=== PATIENT | female | born 1945 | race Caucasian/White ===

== ENCOUNTER 2021-05-18 10:27 | Inpatient (IN) | payer MEDICARE, OTHER ==
[~2021-05-18] VITALS: Ht 165.1 cm; Wt 56.1 kg
[~2021-05-18 10:27] MED LIST: ALLEGRA ALLERG180 MG PO; ESZO1 PO; NAPR500 PO; Norco 5-325 Ta1 EACH PO; OMEP20ER PO; OXYACE5T PO; PARO20 PO; PROM25 PO; PROM25S PR; ROSU5 PO; RXOXYACE PO; TRAM50 PO
[2021-05-18 11:02] LABS: BASOPHILS ABSOLUTE AUTO 0.03 K/mm3 (0.00-0.23); BASOPHILS PERCENT AUTO 0 % (0-2); EOSINOPHILS ABSOLUTE AUTO 0.01 K/mm3 (0.00-0.68); EOSINOPHILS PERCENT AUTO 0 % (0-6); Hematocrit 38.9 % (33.0-51.0); Hemoglobin 13.5 g/dL (11.5-16.0); IMMATURE GRAN ABSOLUTE AUTO 0.05 K/mm3 (0.00-0.10); IMMATURE GRAN PERCENT AUTO 0 % (0-1); LYMPHOCYTES PERCENT AUTO 9 % (21-46); MONOCYTES ABSOLUTE AUTO 0.55 K/mm3 (0.16-1.47); MONOCYTES PERCENT AUTO 4 % (4-13); Mean Corpuscular HGB Conc 34.7 g/dL (31.5-36.5); Mean Corpuscular Volume 86 fL (80-100); NEUTROPHILS PERCENT AUTO 86 % (41-73); Platelet Count 360 K/mm3 (150-400); RDW Coefficient Variation 13.1 % (11.7-14.2); RDW Standard Deviation 41.3 fL (35.1-46.3); White Blood Cell Count 13.54 K/mm3 (4.00-11.30)
[2021-05-18 11:36] LABS: Alanine Aminotransfer (ALT/SGP 25 U/L (12-78); Albumin, Blood 3.4 g/dL (3.4-5.0); Alk Phos 87 U/L (50-136); Anion Gap 8 mmol/L (6-16); Aspartate Aminotrans (AST/SGOT 134 U/L (12-37); Bilirubin, Total 0.4 mg/dL (0.1-1.0); Blood Urea Nitrogen 12 mg/dL (8-24); Bun/Creatinine Ratio 15.2 (12.0-20.0); CO2, Blood 26 mmol/L (21-32); Calcium, Blood 9.2 mg/dL (8.5-10.1); Chloride, Blood 104 mmol/L (98-108); Creatinine, Blood 0.79 mg/dL (0.40-1.00); Globulin, Blood 3.5 g/dL (2.2-4.0); Glomerular Filtration Rate >60 (60-); Glucose, Blood 141 mg/dL (70-99); Sodium, Blood 138 mmol/L (136-145); Total Protein, Blood 6.9 g/dL (6.4-8.2)
[2021-05-18] MEDS ORDERED: PAXIL PO (12:36)
[2021-05-18] MEDS ORDERED: Ventolin/Prove6.7 GM INH (12:36)
[2021-05-18] MEDS ORDERED: LOSARTAN POTASS25 M2 PO (12:37)
[2021-05-18 13:47] LABS: International Normalized Ratio 0.95
--- NOTE | 2021-05-18 22:08 | NUR ---
nurse note HEPARIN PLACED ON HOLD AT 2136 PER PHARMACY. WILL RESTART IN 1 HOUR.
[2021-05-19 04:50] LABS: BASOPHILS ABSOLUTE AUTO 0.01 K/mm3 (0.00-0.23); BASOPHILS PERCENT AUTO 0 % (0-2); EOSINOPHILS PERCENT AUTO 0 % (0-6); Hematocrit 39.6 % (33.0-51.0); Hemoglobin 13.5 g/dL (11.5-16.0); IMMATURE GRAN ABSOLUTE AUTO 0.07 K/mm3 (0.00-0.10); IMMATURE GRAN PERCENT AUTO 1 % (0-1); LYMPHOCYTES ABSOLUTE AUTO 1.24 K/mm3 (0.84-5.20); LYMPHOCYTES PERCENT AUTO 8 % (21-46); MONOCYTES ABSOLUTE AUTO 1.09 K/mm3 (0.16-1.47); MONOCYTES PERCENT AUTO 7 % (4-13); Mean Corpuscular HGB 29.9 pg (26.0-34.0); Mean Corpuscular HGB Conc 34.1 g/dL (31.5-36.5); Mean Corpuscular Volume 88 fL (80-100); Mean Platelet Volume 9.2 fL (9.1-12.4); NEUTROPHILS ABSOLUTE AUTO 12.42 K/mm3 (1.96-9.15); NEUTROPHILS PERCENT AUTO 84 % (41-73); Platelet Count 349 K/mm3 (150-400); RDW Coefficient Variation 13.2 % (11.7-14.2); RDW Standard Deviation 42.2 fL (35.1-46.3); Red Blood Cell Count 4.52 M/mm3 (3.80-5.20); White Blood Cell Count 14.83 K/mm3 (4.00-11.30)
[2021-05-19 05:26] LABS: Albumin, Blood 3.5 g/dL (3.4-5.0); Bilirubin, Total 0.6 mg/dL (0.1-1.0); Bun/Creatinine Ratio 17.1 (12.0-20.0); Calcium, Blood 9.3 mg/dL (8.5-10.1); Creatinine, Blood 0.94 mg/dL (0.40-1.00); Globulin, Blood 3.4 g/dL (2.2-4.0); Potassium, Blood 4.3 mmol/L (3.5-5.5); Total Protein, Blood 6.9 g/dL (6.4-8.2)
[2021-05-19 05:44] LABS: Troponin I 85.4 ng/mL (0.000-0.040)
--- NOTE | 2021-05-19 05:54 | NUR ---
SHIFT SUMMARY PT ADMITTED FOR NSTEMI. AAOX3. TROPONIN TRENDING UP DURING SHIFT. MD NOTIFIED, NO NEW ORDERS. NO CHANGES IN PT CONDITION DURING SHIFT. NO DISTRESS NOTED. VS STABLE. BED IN LOWEST POSITION, CALL LIGHT WITHIN REACH. PT ABLE TO MAKE NEEDS KNOWN.
[2021-05-19 06:18] LABS: CHOL/HDL RATIO 3.6; Cholesterol 269 mg/dL (50-200); HDL Cholesterol 74 mg/dL (>39); LDL/HDL RATIO 2.4; Low Density Lipoprotein Chol 177 mg/dL (0-110); Triglycerides 92 mg/dL (30-160); Very Low Density Lipoprot Chol 18 mg/dL (6-32)
--- NOTE | 2021-05-19 09:13 | NUR ---
ADMIT: 05/18/21 DISCHARGE: DX: Acute Respiratory failure w/hypoxia CC: shyam GUADARRAMA CALL: RESIDENCE: [id number] [place] [address] EMERGENCY CONTACT: Camilo Cartwright, Spouse / Partner, John Burns, Child, DX: arteriosclerotic, HTN, COPD, GERD, prediabetes, see list DME: none CCM: none HOME HEALTH: none SUMMARY: (Admit: 05/18/21) 05/19/21- per chart review with Dr. Wooten, pt is going to have a heart cath procedure this morning. -mitchb
[2021-05-19 09:21] LABS: PCO2 Arterial 36.7 mmHg (35-45); PO2 Arterial 54.1 mmHg (80-100); pH Blood Arterial 7.47 (7.35-7.45)
--- NOTE | 2021-05-19 10:06 | NUR ---
Patient taken to labeling strategist early this am and report given to Josephine in the PCU.
[2021-05-19 10:57] LABS: BASOPHILS ABSOLUTE AUTO 0.02 K/mm3 (0.00-0.23); BASOPHILS PERCENT AUTO 0 % (0-2); EOSINOPHILS PERCENT AUTO 0 % (0-6); Hematocrit 36.7 % (33.0-51.0); Hemoglobin 12.5 g/dL (11.5-16.0); IMMATURE GRAN ABSOLUTE AUTO 0.09 K/mm3 (0.00-0.10); IMMATURE GRAN PERCENT AUTO 1 % (0-1); LYMPHOCYTES ABSOLUTE AUTO 1.45 K/mm3 (0.84-5.20); LYMPHOCYTES PERCENT AUTO 8 % (21-46); MONOCYTES ABSOLUTE AUTO 1.23 K/mm3 (0.16-1.47); MONOCYTES PERCENT AUTO 7 % (4-13); Mean Corpuscular HGB Conc 34.1 g/dL (31.5-36.5); Mean Corpuscular Volume 88 fL (80-100); Mean Platelet Volume 9.3 fL (9.1-12.4); NEUTROPHILS ABSOLUTE AUTO 15.53 K/mm3 (1.96-9.15); NEUTROPHILS PERCENT AUTO 85 % (41-73); Platelet Count 323 K/mm3 (150-400); RDW Coefficient Variation 13.2 % (11.7-14.2); RDW Standard Deviation 42.5 fL (35.1-46.3); Red Blood Cell Count 4.16 M/mm3 (3.80-5.20); White Blood Cell Count 18.32 K/mm3 (4.00-11.30)
[2021-05-19 11:17] LABS: International Normalized Ratio 0.96; Prothrombin Time Results 10.1 Sec (9.7-11.5)
[2021-05-19 11:28] LABS: Anion Gap 7 mmol/L (6-16); Blood Urea Nitrogen 19 mg/dL (8-24); Bun/Creatinine Ratio 21.4 (12.0-20.0); CO2, Blood 29 mmol/L (21-32); Calcium, Blood 9.2 mg/dL (8.5-10.1); Chloride, Blood 104 mmol/L (98-108); Creatinine, Blood 0.89 mg/dL (0.40-1.00); Glomerular Filtration Rate >60 (60-); Glucose, Blood 112 mg/dL (70-99); Sodium, Blood 140 mmol/L (136-145)
[2021-05-19 11:33] LABS: CPK Creatine Kinase 2147 U/L (26-193)
[2021-05-19 11:48] LABS: Creatine Kinase MB 118.2 ng/mL (0.0-3.6); Creatine Kinase MB Index 5.5 (0.0-4.0)
[2021-05-19 13:03] LABS: Appearance, Urine Clear (Clear); Bilirubin, Urine Neg (Neg); Blood, Urine 2+ (Neg); Color, Urine Yellow (P-Yellow); Glucose Qualitative, Urine Neg (Neg); Ketones, Urine Neg (Neg); Leukocyte Esterase, Urine 2+ (Neg); Nitrite, Urine Neg (Neg); Protein, Urine 2+ (Neg); Specific Gravity, Urine 1.015 (1.003-1.022); Urobilinogen, Urine NORM (Normal)
[2021-05-19 13:52] LABS: Bacteria Few /hpf; Squamous Epithelial Cells Few /hpf (Few)
--- NOTE | 2021-05-19 17:00 | NUR ---
SHIFT SUMMARY RECEIVED REPORT FROM SUNG ALVA ON MED, PT TO VISCOSITY WORKER, BEDSIDE REPORT RECEIVED FROM RANJAN ALVA. RIGHT GROIN SITE ASSESSMENT; C/D/I; RECOVERED SITE PER ORDERS. NO BLEEDING, HEMATOMA OR BRUISING NOTED. PT A&Ox4; CALM AND COOPERATIVE WITH CARE. PT DENIES PAIN, CHEST PAIN/PRESSURE, SOB, NASUEA, DIZZINESS AND NUMBNESS/TINGLING. PT ON RA UPON TRANSFER TO ROOM, SPO2 88-89%, PLACED ON 2L O2 VIA NC, TITRATED TO 3L O2 VIA NC WHILE SLEEPING. LS DIMINSED T/O. BREATHING EVEN AND UNLABORED. PT HAS DROPPED BEATS/BRADYCARDIA, NOTIFIED DR VINES, NEW ORDERS FOR ATROPINE FOR HEART SUSTAINING LESS THAN 50. OTHER VSS. NO OTHER ACUTE CHANGES NOTED. PLANS TO COBRA TRANSFER. WILL CONTINUE TO MONITOR UNTIL REPORT GIVEN TO ONCOMING RN.
[2021-05-19 19:59] LABS: Troponin I 53.5 ng/mL (0.000-0.040)
[2021-05-19 20:17] LABS: Creatine Kinase MB 62.3 ng/mL (0.0-3.6); Creatine Kinase MB Index 4.1 (0.0-4.0)
[2021-05-20 04:05] LABS: BASOPHILS ABSOLUTE AUTO 0.02 K/mm3 (0.00-0.23); BASOPHILS PERCENT AUTO 0 % (0-2); EOSINOPHILS ABSOLUTE AUTO 0.01 K/mm3 (0.00-0.68); EOSINOPHILS PERCENT AUTO 0 % (0-6); Hematocrit 32.9 % (33.0-51.0); Hemoglobin 11.4 g/dL (11.5-16.0); IMMATURE GRAN ABSOLUTE AUTO 0.04 K/mm3 (0.00-0.10); IMMATURE GRAN PERCENT AUTO 0 % (0-1); LYMPHOCYTES PERCENT AUTO 13 % (21-46); MONOCYTES ABSOLUTE AUTO 0.85 K/mm3 (0.16-1.47); MONOCYTES PERCENT AUTO 7 % (4-13); Mean Corpuscular HGB 30.5 pg (26.0-34.0); Mean Corpuscular HGB Conc 34.7 g/dL (31.5-36.5); Mean Corpuscular Volume 88 fL (80-100); Mean Platelet Volume 9.1 fL (9.1-12.4); NEUTROPHILS ABSOLUTE AUTO 9.54 K/mm3 (1.96-9.15); NEUTROPHILS PERCENT AUTO 79 % (41-73); Platelet Count 253 K/mm3 (150-400); RDW Coefficient Variation 13.5 % (11.7-14.2); Red Blood Cell Count 3.74 M/mm3 (3.80-5.20); White Blood Cell Count 12.06 K/mm3 (4.00-11.30)
[2021-05-20 04:36] LABS: Alanine Aminotransfer (ALT/SGP 35 U/L (12-78); Albumin, Blood 2.8 g/dL (3.4-5.0); Albumin/Globulin Ratio 0.9 (0.8-1.8); Alk Phos 65 U/L (50-136); Anion Gap 5 mmol/L (6-16); Aspartate Aminotrans (AST/SGOT 195 U/L (12-37); Bilirubin, Total 0.5 mg/dL (0.1-1.0); Blood Urea Nitrogen 19 mg/dL (8-24); Bun/Creatinine Ratio 24.1 (12.0-20.0); CO2, Blood 28 mmol/L (21-32); CPK Creatine Kinase 976 U/L (26-193); Calcium, Blood 8.7 mg/dL (8.5-10.1); Chloride, Blood 105 mmol/L (98-108); Creatinine, Blood 0.79 mg/dL (0.40-1.00); Globulin, Blood 3.2 g/dL (2.2-4.0); Glomerular Filtration Rate >60 (60-); Glucose, Blood 166 mg/dL (70-99); Potassium, Blood 3.7 mmol/L (3.5-5.5); Sodium, Blood 138 mmol/L (136-145)
[2021-05-20 04:55] LABS: Creatine Kinase MB 22.8 ng/mL (0.0-3.6); Creatine Kinase MB Index 2.3 (0.0-4.0)
--- NOTE | 2021-05-20 09:24 | NUR ---
REPORT TO TRANSFER CREW FOR COBRA TRANSFER. REPORT PREVIOUSLY GIVEN TO ACCEPTING HOSPTIAL BY DEFENSE ANALYST RN. TRANSFERRED WITH HEPARIN INFUSING AT 14UNIT/KG PER ORDERS AT TIME OF TRANSFER.
== END 2021-05-20 08:57 | disposition short-term general hospital (02) | DRG 280 ==
LOC: ER 10:27 → MEDS 14:30 → PCU 05-19 09:33
PROVIDERS: Emergency Medicine; Family Medicine; Internal Medicine Cardiovascular Disease; ADMIT Family Medicine
PROC: 4A023N7 Measurement of Cardiac Sampling and Pressure, Left Heart, Percutaneous Approach (ICD-10-PCS; principal; 2021-05-19)
PROC: B2111ZZ Fluoroscopy of Multiple Coronary Arteries using Low Osmolar Contrast (ICD-10-PCS; 2021-05-19)
PROC: B2151ZZ Fluoroscopy of Left Heart using Low Osmolar Contrast (ICD-10-PCS; 2021-05-19)
DX: I21.4 Non-ST elevation (NSTEMI) myocardial infarction (principal); J96.01 Acute respiratory failure with hypoxia; J44.1 Chronic obstructive pulmonary disease with (acute) exacerbation; I50.32 Chronic diastolic (congestive) heart failure; E78.00 Pure hypercholesterolemia, unspecified; E78.5 Hyperlipidemia, unspecified; K21.9 Gastro-esophageal reflux disease without esophagitis; Z20.822 Contact with and (suspected) exposure to COVID-19; M81.0 Age-related osteoporosis without current pathological fracture; R91.8 Other nonspecific abnormal finding of lung field; M19.90 Unspecified osteoarthritis, unspecified site; F41.8 Other specified anxiety disorders; I25.10 Atherosclerotic heart disease of native coronary artery without angina pectoris; I71.4 Abdominal aortic aneurysm, without rupture; I11.0 Hypertensive heart disease with heart failure; F17.210 Nicotine dependence, cigarettes, uncomplicated; Z98.890 Other specified postprocedural states; Z87.11 Personal history of peptic ulcer disease; Z88.6 Allergy status to analgesic agent; Z88.8 Allergy status to other drugs, medicaments and biological substances; Z79.899 Other long term (current) drug therapy; Z90.89 Acquired absence of other organs
CPT/HCPCS: 36415; 36600; 71045; 71260; 75625; 75716; 80048; 80053; 80061; 81001; 82550; 82553; 82803; 83880; 84484; 85025; 85347; 85520; 85610; 85730; 93005; 93010; 93306; 93458; 94640; 94760; 94762; 96374; 99152; 99153; 99285-25; A9270; C1760; C1769; C1894; C8929; J0690; J1644; J1940; J2250; J2930; J3010; J7030; Q9956; Q9957; Q9967

== ENCOUNTER 2021-12-14 15:52 | Inpatient (IN) | payer MEDICARE, OTHER ==
[~2021-12-14] VITALS: Ht 165.1 cm; Wt 57.0 kg
[~2021-12-14 15:52] MED LIST changes: +LOSARTAN POTASS25 M2 PO; +PAXIL PO; +Ventolin/Prove6.7 GM INH
[2021-12-14 16:50] LABS: Alanine Aminotransfer (ALT/SGP 21 U/L (12-78); Albumin, Blood 3.6 g/dL (3.4-5.0); Albumin/Globulin Ratio 1.2 (0.8-1.8); Alk Phos 89 U/L (50-136); Anion Gap 6 mmol/L (6-16); Aspartate Aminotrans (AST/SGOT 16 U/L (12-37); Bilirubin, Total 0.5 mg/dL (0.1-1.0); Blood Urea Nitrogen 15 mg/dL (8-24); Bun/Creatinine Ratio 20.3 (12.0-20.0); CO2, Blood 27 mmol/L (21-32); Chloride, Blood 105 mmol/L (98-108); Creatinine, Blood 0.74 mg/dL (0.40-1.00); Globulin, Blood 3.1 g/dL (2.2-4.0); Glomerular Filtration Rate >60 (60-); Glucose, Blood 151 mg/dL (70-99); Potassium, Blood 3.7 mmol/L (3.5-5.5); Sodium, Blood 138 mmol/L (136-145); Total Protein, Blood 6.7 g/dL (6.4-8.2)
[2021-12-14 16:56] LABS: BASOPHILS ABSOLUTE AUTO 0.04 K/mm3 (0.00-0.23); BASOPHILS PERCENT AUTO 1 % (0-2); EOSINOPHILS ABSOLUTE AUTO 0.08 K/mm3 (0.00-0.68); EOSINOPHILS PERCENT AUTO 1 % (0-6); Hematocrit 37.8 % (33.0-51.0); Hemoglobin 12.4 g/dL (11.5-16.0); IMMATURE GRAN ABSOLUTE AUTO 0.03 K/mm3 (0.00-0.10); IMMATURE GRAN PERCENT AUTO 0 % (0-1); LYMPHOCYTES ABSOLUTE AUTO 0.41 K/mm3 (0.84-5.20); LYMPHOCYTES PERCENT AUTO 5 % (21-46); MONOCYTES ABSOLUTE AUTO 0.47 K/mm3 (0.16-1.47); MONOCYTES PERCENT AUTO 6 % (4-13); Mean Corpuscular HGB 29.1 pg (26.0-34.0); Mean Corpuscular HGB Conc 32.8 g/dL (31.5-36.5); Mean Corpuscular Volume 89 fL (80-100); NEUTROPHILS PERCENT AUTO 86 % (41-73); Platelet Count 211 K/mm3 (150-400); RDW Coefficient Variation 14.3 % (11.7-14.2); RDW Standard Deviation 46.4 fL (35.1-46.3); Red Blood Cell Count 4.26 M/mm3 (3.80-5.20); White Blood Cell Count 7.53 K/mm3 (4.00-11.30)
[2021-12-14 18:22] LABS: Bicarbonate Venous 24.9 mmol/L (24.0-30.0); PCO2 Venous 46.2 mmHg (38-42); PO2 Venous 101 mmHg (38-42); pH Blood Venous 7.37 (7.34-7.37)
[2021-12-14 19:25] LABS: Source, Urine Clean Catch
[2021-12-14 19:30] LABS: Appearance, Urine Clear (Clear); Bilirubin, Urine Neg (Neg); Blood, Urine 4+ (Neg); Color, Urine Yellow (P-Yellow); Glucose Qualitative, Urine Neg (Neg); Ketones, Urine 1+ (Neg); Leukocyte Esterase, Urine 1+ (Neg); Nitrite, Urine Neg (Neg); Protein, Urine 2+ (Neg); Specific Gravity, Urine 1.025 (1.003-1.022); Urobilinogen, Urine NORM (Normal)
[2021-12-14 20:10] LABS: Amorphous Light (0-Heavy); Bacteria Mod /hpf; Hyaline Casts 0-2 /lpf (0-2); Mucus Light (0-Heavy); Squamous Epithelial Cells Few /hpf (Few); White Blood Cells, Urine 0-2 /hpf (0-5)
[2021-12-15 05:25] LABS: Hematocrit 37.8 % (33.0-51.0); Hemoglobin 12.6 g/dL (11.5-16.0); Mean Corpuscular HGB 29.4 pg (26.0-34.0); Mean Corpuscular HGB Conc 33.3 g/dL (31.5-36.5); Mean Corpuscular Volume 88 fL (80-100); Mean Platelet Volume 9.9 fL (9.1-12.4); Platelet Count 196 K/mm3 (150-400); RDW Coefficient Variation 14.2 % (11.7-14.2); RDW Standard Deviation 45.6 fL (35.1-46.3); Red Blood Cell Count 4.28 M/mm3 (3.80-5.20); White Blood Cell Count 3.52 K/mm3 (4.00-11.30)
--- NOTE | 2021-12-15 05:54 | NUR ---
SHIFT SUMMARY PT ADMITTED TO ROOM 336 FROM ER. PT A/O X 4, INDEPENDENT IN ROOM, SKIN INTACT, VSS. LUNGS WITH WHEEZES THROUGHOUT, THI 2L O2 VIA N/C, NO DISTRESS NOTED. PT VOIDING WITHOUT DIFFICULTY, STATES SHE'S FEELING BETTER THIS MORNING. ANTICIPATE D/C WHEN MEDICALLY STABLE.
[2021-12-15 05:56] LABS: BAND PERCENT MAN 7 % (0-8); BASOPHILS PERCENT MAN 0 % (0-2); EOSINOPHILS PERCENT MAN 0 % (0-6); LYMPHOCYTES ABSOLUTE MAN 0.21 K/mm3 (0.84-5.20); LYMPHOCYTES PERCENT MAN 6 % (21-46); MONOCYTES ABSOLUTE MAN 0.07 K/mm3 (0.16-1.47); MONOCYTES PERCENT MAN 2 % (4-13); NEUTROPHILS ABSOLUTE MAN 3.23 K/mm3 (1.96-9.15); SEG NEUTROPHILS PERCENT MAN 85 % (41-73); TOTAL CELLS COUNTED 100
[2021-12-15 06:10] LABS: Thyroid Stimulating Hormone 0.478 uIU/mL (0.360-4.800)
[2021-12-15 06:11] LABS: Albumin, Blood 3.4 g/dL (3.4-5.0); Anion Gap 6 mmol/L (6-16); Blood Urea Nitrogen 22 mg/dL (8-24); Bun/Creatinine Ratio 27.2 (12.0-20.0); CO2, Blood 27 mmol/L (21-32); Chloride, Blood 104 mmol/L (98-108); Creatinine, Blood 0.81 mg/dL (0.40-1.00); Glomerular Filtration Rate >60 (60-); Glucose, Blood 217 mg/dL (70-99); Phosphorus, Blood 2.9 mg/dL (2.5-4.9); Potassium, Blood 3.8 mmol/L (3.5-5.5); Sodium, Blood 137 mmol/L (136-145)
[2021-12-15 13:53] LABS: Influenza A, PCR NEGATIVE (NEGATIVE); Influenza B, PCR NEGATIVE (NEGATIVE); Resp Syncytial Virus, PCR NEGATIVE (NEGATIVE); SARS-Cov-2 (COVID-19) PCR, MMC NEGATIVE (NEGATIVE)
[2021-12-15] MEDS ORDERED: ATOR40TA PO (15:59)
[2021-12-15] MEDS ORDERED: METO25ER PO (16:00)
[2021-12-15] MEDS ORDERED: Lopressor 25 mg25 MG PO (16:01)
[2021-12-15] MEDS ORDERED: ASPI81CH PO (16:04)
--- NOTE | 2021-12-15 17:55 | NUR ---
SHIFT SUMMARY PT INDEPENDENT TO BATHROOM. SOB WITH ACTIVITY. FEELS MOST OF HER SPUTUM IS FROM POST NASAL DRIP FROM THE NIGHT. ON O2 AT 2-3 L/M. GENERALLY ONLY USES O2 PRN AT HOME.
--- NOTE | 2021-12-16 05:35 | NUR ---
SHIFT SUMMARY PT A/O X 4, INDEPENDENT IN ROOM, THI PO WELL, VOIDING WITHOUT DIFFICULTY. VSS, SKIN INTACT, LUNGS WITH SCATTERED WHEEZES AND MILD SOB WITH ACTIVITY. PT ON 2L O2 VIA N/C. PT AFEBRILE, ABX'S PER OCT, PLAN TO START LASIX PER OCT TODAY PER MD ORDERS. ANTICIPATE D/C WHEN MEDICALLY STABLE.
--- NOTE | 2021-12-16 16:21 | NUR ---
SHIFT SUMMARY- PT ALERT, ORIENTED AND INDEPENDENT IN THE ROOM. PT HAD A HOME O2 EVAL TODAY THAT SHOWS NEED FOR 2L VIA NC WHEN THE PT AMBULATES. PT IS AWARE OF THIS. PT RECIEVES HER HOME O2 SUPPLIES THROUGH [facility]. MESSENGER OFFICE IS AWARE AND WILL FAX ORDERS FR HOME O2 TOMORROW. PLAN IS FOR THE PT TO DC HOME TOMORROW. PT CURRENTLY SITTING UP IN BED, CALL LIGHT IN REACH NO S&S OF DISTRESS NOTED. WILL CTM AND PASS ON TO NIGHT RN IN BEDSIDE REPORT.
--- NOTE | 2021-12-16 18:13 | NUR ---
Shift summary - PT is AOx4, no acute events T/O shift. PT is independent in her room. RT eval and said she is needs 2L O2 during ambulation and RA while at rest. PT gets her O2 supplies from [facility] in [place], briefcase sewer is aware of this. D/C is planned for tomorrow. PT was advised by the doctor to cease smoking, as this is vital going forward. She is currently taking nicotine losanges, 2-3 per day and 1/2 at a time. Will CTM and pass on report to night nurse.
--- NOTE | 2021-12-17 04:06 | NUR ---
PT A & OX3. PT COOPERATIVE AND PLEASANT. SBA WITH GB. 02 AT 2LPM VIA NC. IV TO L) FA FLUSHED W/O DIFFICULTY. PT VOIDED W/O DIFFICULTY. NO BM THIS SHIFT. V/S WNL. REGULAR DIET. 2L FLUID RESTRICTION. WILL CONTINUE TO MONITOR.
--- NOTE | 2021-12-17 12:04 | NUR ---
Spoke with Primary RN Tesha and discussed case. Tesha reports Pt being D/C home today and may benefit from advanced care planning. Pt sitting up in bed upon arrival. Pt is A&OX4. 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 She states "my heart is getting weaker". She reports being and living in [place]. Gentle education on disease process including trajectory and the importance or routine conversations with PCP. She points to an advanced directive and POLST on her BST. Educated on both AD and POLST. Educated on life sustaing treatments including risk factors and implications of CPR. Educated on each section to complete including choices. Pt reports not wanting CPR and Limited Treatment. She reports plan to have her PCP sign POLST after she completes POLST at home. Continued therapeutic listening and answered questions. Palliative Care will remain available.
--- NOTE | 2021-12-17 12:54 | NUR ---
Spiritual care visit conducted. Patient is sitting up in bed and alert. Total time with pt is 50 min. Patient talks about her fears over her medical issues, about the future and about all that is needed to "get her affairs in order." After much therapeutic listening, I provide pt with list of homes, a Polst form, an Advance Directive form and my work number to assist in settling the questions she has. We also discuss her spiritual distress that began as a young girl that centered around personal events in the home and in the nondenominational that caused significant harm to her on many levels. I supply materials/resources needed to address her specific concerns. I also provide therapeutic listeing, emotional support, companionship, theological insights and companionship. Patient responds well and shows signs of restored alicia, and increased peace. I will continue to remain available to patient and family.
[2021-12-17] MEDS ORDERED: LOSA50 PO (12:57)
[2021-12-17] MEDS ORDERED: AZIT500 PO (13:00)
[2021-12-17] MEDS ORDERED: IPRAT-ALBUT 0.5-3 ML INH (13:00)
[2021-12-17] MEDS ORDERED: Children's Clari5 MG PO (13:01)
[2021-12-17] MEDS ORDERED: MIRALAX17 GM PO (13:02)
[2021-12-17] MEDS ORDERED: Vitamin D1000 UNI1 PO (13:02)
[2021-12-17] MEDS ORDERED: FURO20 PO (13:03)
[2021-12-17] MEDS ORDERED: Prednisone10 MG PO (13:06)
--- NOTE | 2021-12-17 14:55 | NUR ---
DISCHARGE NOTE- PT WAS GIVEN VERBAL AND WRITTEN DISCAHRGE INSTRUCTIONS AND ACKNOWLEDGED UNDERSTANDING OF THEM. IV DC'D PRIOR TO DISCHARGE. PT ON 2L O2 WITH ACTIVITY AND SHE IS AWARE THIS IS ALL ACTIVITY. FOLLOW UP WITH PCP SCHEDULED AND CARDIOLOGY MADE AWARE OF THE NEED FOR AN APPOINTMENT IN 2-4 WEEKS. PT WAS ESCORTED OUT VIA WC TO THE PT ENTRANCE WHERE HER PICKED HER UP. NO S&S OF DISTRESS NOTED AT THE TIME OF DISCHARGE. PT MEDS FAXED TO [facility] PER HER REQUEST AND THE PT HAD HER NEBULIZER DELIVERED PRIOR TO DISCHARGE.
== END 2021-12-17 14:06 | disposition home or self-care (01) | DRG 291 ==
LOC: ER 15:52 → MEDS 20:30
PROVIDERS: Emergency Medicine; Internal Medicine; ADMIT Internal Medicine
DX: I11.0 Hypertensive heart disease with heart failure (principal); I50.41 Acute combined systolic (congestive) and diastolic (congestive) heart failure; J96.21 Acute and chronic respiratory failure with hypoxia; J44.1 Chronic obstructive pulmonary disease with (acute) exacerbation; Z20.822 Contact with and (suspected) exposure to COVID-19; R91.8 Other nonspecific abnormal finding of lung field; I71.4 Abdominal aortic aneurysm, without rupture; K21.9 Gastro-esophageal reflux disease without esophagitis; I25.10 Atherosclerotic heart disease of native coronary artery without angina pectoris; F41.8 Other specified anxiety disorders; E78.5 Hyperlipidemia, unspecified; I25.2 Old myocardial infarction; F17.210 Nicotine dependence, cigarettes, uncomplicated; Z95.1 Presence of aortocoronary bypass graft; Z79.899 Other long term (current) drug therapy; Z98.890 Other specified postprocedural states; Z88.6 Allergy status to analgesic agent; Z88.8 Allergy status to other drugs, medicaments and biological substances; Z90.89 Acquired absence of other organs
CPT/HCPCS: 0241U; 36415; 71045; 71250; 80053; 80069; 81001; 82803; 83880; 84443; 84484; 85025; 93005; 93010; 94640; 94664; 94667; 94760; 94761; 96374; 96375; 98960; 99285-25; A9270; J1650; J1940; J2405; J2920; J2930; J7512